=== PATIENT | male | born 2005 | race Caucasian/White ===

== ENCOUNTER 2024-03-13 17:51 | Emergency (ER) | payer OTHER, MEDICAID ==
[~2024-03-13] VITALS: Ht 162.6 cm; Wt 72.6 kg
[2024-03-13 17:51] VITALS: BP_SYST 117; PULSE 104; RESP 18; TEMP 98.1; O2SAT 99
[2024-03-13] MEDS ORDERED: ACETAMINOPHEN 500 MG TABLET PO ONE (19:00)
== END 2024-03-13 19:07 | disposition left against medical advice (07) ==
LOC: SED 17:51 → EDSEX 17:51 → SED 19:07
DX: M54.50 Low back pain, unspecified (principal); V89.2XXA Person injured in unspecified motor-vehicle accident, traffic, initial encounter; Y93.89 Activity, other specified; Y92.89 Other specified places as the place of occurrence of the external cause; Y99.8 Other external cause status
CPT/HCPCS: 99283